=== PATIENT | male | born 1960 | race Caucasian/White ===

== ENCOUNTER 2018-07-25 05:26 | Observation (INO) | payer MEDICARE ==
[2018-07-22 10:24] LABS: BASOPHILS % 0.6 % (0.0-1.0); EOSINOPHILS # (AUTO) 0.4 (0.0-0.4); EOSINOPHILS % 5.9 % (0.0-6.0); HEMATOCRIT 49.8 % (38.2-49.6); HEMOGLOBIN 16.1 g/dL (14.0-18.0); LYMPHOCYTES # (AUTO) 1.4 (1.0-3.2); LYMPHOCYTES % 20.6 % (18.0-39.1); MEAN CORPUSCULAR HEMOGLOBIN 29.3 pg (28-32); MEAN CORPUSCULAR HGB CONC 32.3 g/dL (31-35); MEAN CORPUSCULAR VOLUME 90.7 fL (81-99); MONOCYTES # (AUTO) 0.6 (0.2-0.8); MONOCYTES % 8.4 % (4.4-11.3); NEUTROPHILS # (AUTO) 4.4 (2.1-6.9); NEUTROPHILS % 63.1 % (38.7-80.0); PLATELET COUNT 156 x10e3/uL (140-360); RED BLOOD COUNT 5.49 x10e6/uL (4.3-5.7); RED CELL DISTRIBUTION WIDTH 13.1 % (11.7-14.4)
[2018-07-22 10:43] LABS: ANION GAP 14.9 mmol/L (8-16); BLOOD UREA NITROGEN 18 mg/dL (7-26); BUN/CREATININE RATIO 15 (6-25); CALCIUM 9.5 mg/dL (8.4-10.2); CARBON DIOXIDE 25 mmol/L (22-29); CHLORIDE 104 mmol/L (98-107); CREATININE, SERUM 1.19 mg/dL (0.72-1.25); EST GLOMERULAR FILTRATION RATE > 60 ML/MIN (60-); GLUCOSE 121 mg/dL (74-118); POTASSIUM 4.9 mmol/L (3.5-5.1); SODIUM 139 mmol/L (136-145)
[~2018-07-25] VITALS: Ht 180.3 cm; Wt 111.8 kg
[~2018-07-25 05:26] MED LIST: CYMBALTA30 MG; FLECTOR1 EACH; INVOKANA; LISINOPRIL2.5 MG PO; LYRICA75 MG; METANX; METFORMIN HCL850 MG PO; TESTOSTERO200 MG/1 M; TRESIBA; [UNRECOGNIZED DRUG - OTHER]
[2018-07-25] MEDS ORDERED: CEFAZOLIN SOD 2 GM/D5W 50ML 50 ML IV ONE (06:12)
[2018-07-25] MEDS ORDERED: INVOKANA (06:48)
[2018-07-25] MEDS ORDERED: DICLOFENAC SODI75 MG (06:48)
[2018-07-25] MEDS ORDERED: OMEPRAZOLE40 MG (06:48)
[2018-07-25] MEDS ORDERED: ONDANSETRON HCL INJ 2 MG/ML VIAL IV PRN (08:15)
[2018-07-25] MEDS ORDERED: MORPHINE SULFATE INJ 4 MG/ML INJ IV PRN (08:15)
[2018-07-25] MEDS ORDERED: FENTANYL CITRATE/PF 100MCG/2 ML INJ ONE ×3 (08:48→18:09)
[2018-07-25] MEDS ORDERED: PREGABALIN 75 MG CAP PO SCH ×2 (09:00)
[2018-07-25] MEDS ORDERED: METFORMIN HCL 850 MG TAB PO SCH (09:00)
[2018-07-25] MEDS ORDERED: NON-FORMULARY MEDICATION ([Invokana] 300 MG) PO SCH (09:00)
[2018-07-25 09:28] VITALS: BP 131/70
--- NOTE | 2018-07-25 09:37 | Operative Report ---
DATE OF PROCEDURE: July 25, 2018 PREOPERATIVE DIAGNOSIS: Left thyroid mass with tracheal compression. POSTOPERATIVE DIAGNOSIS: Left thyroid mass with tracheal compression. PROCEDURE: Left thyroid lobectomy and isthmusectomy. DATA INTEGRATION ANALYST: None. ANESTHESIA: General. INDICATIONS AND FINDINGS: Patient is a 57-year-old male who presents with a mass in the left lobe of the thyroid. This increased in size. Exam revealed a large mass in the left lobe of the thyroid extending into the left neck with compression and deviation of the trachea to the right. At surgery, there was a large mass taking up almost the entire left lobe of the thyroid with also a small nodule in the isthmus. Frozen section of the mass revealed it to be benign adenomatous nodule. TECHNIQUE: After adequate general endotracheal anesthesia and patient in supine position, the neck was prepped and draped in sterile fashion with [place] solution. Transverse incision was made approximately 2 cm above the sternal notch, carried down through the subcutaneous tissue and platysma. Subplatysmal flaps were raised superiorly and inferiorly. Strap muscles were divided in the midline. The trachea was noted to be deviated to the right. The strap muscle was dissected away from the left lobe of the thyroid. It was greatly enlarged. It was found to extend laterally into the neck. The vein was mobilized by dividing the middle thyroid vein and was bluntly freed from the surrounding tissues so it could be mobilized to the midline. In order to facilitate the mobilization, strap muscles were divided between clamps. With the clamp mobilized in the midline, the vessels going into thyroid were dissected free and divided between Hemoclips. The recurrent laryngeal nerve was identified and preserved. The parathyroid was also identified and preserved. As the gland was mobilized, the vessel was divided between Hemoclips. The superior pole vessels also were divided between Hemoclips until the gland was completely free and the isthmus was free also from the trachea. The thyroid was then divided at the junction of the isthmus and the right lobe of the thyroid between clamps and the specimen removed, submitted for frozen section, revealed a benign adenomatous nodule. The thyroid was suture ligated with 2-0 Vicryl. Hemostasis was seen to be adequate. The wound was then irrigated with saline, inspected for hemostasis which was seen to be adequate. A 10-mm flat Saji-Cervantes drain was placed into the wound, beneath the strap muscles through a separate stab wound incision. The strap muscles were reapproximated using interrupted sutures of 3-0 Vicryl then reapproximated in the midline using 2-0 Vicryl. The platysma was closed with running suture of 3-0 Vicryl. The skin was closed with running subcuticular suture of 4-0 Vicryl. Steri-strips and sterile dressing were applied. The patient tolerated the procedure well. Estimated blood loss was 25 mL. There were no complications. All counts were correct. Patient was taken to the recovery room in satisfactory condition. Job#: [id number] GE cc:ALIX CARLSON MD
[2018-07-25] MEDS: LISINOPRIL 2.5 MG TAB PO SCH (10:10)
[2018-07-25] MEDS: PREGABALIN 50 MG CAP PO SCH (10:10)
[2018-07-25] MEDS: METFORMIN HCL 500 MG TAB CR PO SCH (10:11)
[2018-07-25] MEDS: HYDROCODONE/APAP 5MG-325MG TAB PO PRN ×3 (10:11→22:55)
[2018-07-25] MEDS: CANAGLIFLOZIN 300 MG TABLET PO SCH (10:11)
[2018-07-25] MEDS: DULOXETINE HCL 30 MG DELAYED RELEASE PO SCH (10:11)
[2018-07-25] MEDS: PANTOPRAZOLE SOD 40 MG TABEC PO SCH (10:11)
[2018-07-25] MEDS: SODIUM CHLORIDE 0.9% 1000ML 1,000 ML IV SCH ×2 (10:11→18:12)
[2018-07-25 10:17] VITALS: BP 131/70
[2018-07-25 11:46] VITALS: BP 128/78
[2018-07-25 15:55] VITALS: BP 113/58
[2018-07-25] MEDS ORDERED: MIDAZOLAM HCL 2 MG/2 ML VIAL ONE ×2 (18:09)
[2018-07-25] MEDS ORDERED: NEOSTIGMINE 5 MG/5ML SYR ONE (18:26)
[2018-07-25] MEDS ORDERED: PROPOFOL IV EMULSION 10 MG/ML 20 ML VIAL ONE (18:26)
[2018-07-25] MEDS ORDERED: SEVOFLURANE INHAL SOLN 250 ML PEN BTL ONE (18:26)
[2018-07-25] MEDS ORDERED: ONDANSETRON HCL INJ 2 MG/ML VIAL ONE (18:26)
[2018-07-25] MEDS ORDERED: DEXAMETHASONE SOD PHOS INJ 4 MG/ML VIAL ONE (18:26)
[2018-07-25] MEDS ORDERED: ACETAMINOPHEN 1000 MG/100 ML IV ONE (18:26)
[2018-07-25] MEDS ORDERED: KETOROLAC TROMETHAMINE 30 MG/ML VIAL ONE (18:26)
[2018-07-25] MEDS ORDERED: ROCURONIUM BROMIDE 10 MG/ML 5ML VIAL ONE (18:26)
[2018-07-25] MEDS ORDERED: GLYCOPYRROLATE INJ 1MG/ 5 ML SYR ONE (18:26)
[2018-07-25] MEDS ORDERED: LIDOCAINE HCL 2% LOCAL INJ 5 ML SDV VIAL INJ ONE (18:26)
[2018-07-25 20:00] VITALS: BP 121/66
[2018-07-26 00:34] VITALS: BP 128/60
[2018-07-26] MEDS: SODIUM CHLORIDE 0.9% 1000ML 1,000 ML IV SCH (04:12)
[2018-07-26] MEDS: HYDROCODONE/APAP 5MG-325MG TAB PO PRN ×2 (05:09→08:35)
[2018-07-26 05:51] VITALS: BP 131/63
[2018-07-26 06:39] LABS: ANION GAP 14.3 mmol/L (8-16); CARBON DIOXIDE 21 mmol/L (22-29); CHLORIDE 107 mmol/L (98-107); POTASSIUM 4.3 mmol/L (3.5-5.1); SODIUM 138 mmol/L (136-145)
[2018-07-26 06:59] LABS: BLOOD UREA NITROGEN 23 mg/dL (7-26); BUN/CREATININE RATIO 19 (6-25); CALCIUM 8.6 mg/dL (8.4-10.2); CREATININE, SERUM 1.21 mg/dL (0.72-1.25); EST GLOMERULAR FILTRATION RATE > 60 ML/MIN (60-); GLUCOSE 139 mg/dL (74-118)
[2018-07-26] MEDS: PANTOPRAZOLE SOD 40 MG TABEC PO SCH (07:30)
[2018-07-26] MEDS: METFORMIN HCL 500 MG TAB CR PO SCH (08:00)
[2018-07-26 08:19] VITALS: BP 120/60
[2018-07-26] MEDS: CANAGLIFLOZIN 300 MG TABLET PO SCH (08:47)
[2018-07-26] MEDS: LISINOPRIL 2.5 MG TAB PO SCH (08:47)
[2018-07-26] MEDS: PREGABALIN 50 MG CAP PO SCH (08:47)
[2018-07-26] MEDS: DULOXETINE HCL 30 MG DELAYED RELEASE PO SCH (08:47)
[2018-07-26 09:00] VITALS: BP 120/60
== END 2018-07-26 09:40 | disposition home or self-care (01) ==
LOC: OR 05:26 → PACU V 08:56 → MED/SURG 09:13
PROVIDERS: ADMIT Surgery; ATTEND Surgery
DX: E04.1 Nontoxic single thyroid nodule (principal); J39.8 Other specified diseases of upper respiratory tract; E11.42 Type 2 diabetes mellitus with diabetic polyneuropathy; Z96.651 Presence of right artificial knee joint; Z86.14 Personal history of Methicillin resistant Staphylococcus aureus infection; Z01.810 Encounter for preprocedural cardiovascular examination; Z01.812 Encounter for preprocedural laboratory examination
CPT/HCPCS: 36415 ×3; 60210; 80048 ×2; 82948 ×2; 85025; 88307; 88331; 93005; G0378 ×2; J1100; J1885; J2001; J2250; J2405; J3490; J7030; S0164 ×2; 88305

== ENCOUNTER 2019-05-30 11:14 | Outpatient (RCR) | payer MEDICARE ==
[~2019-05-30 11:14] MED LIST changes: +DICLOFENAC SODI75 MG; +LIDOCAINE VISC 2% SOLN 15 ML UDC ONE; +OMEPRAZOLE40 MG
[2019-05-30] MEDS ORDERED: LIDOCAINE VISC 2% SOLN 15 ML UDC ONE (17:44)
== END 2019-06-04 ==
LOC: WCC 11:14
PROVIDERS: ATTEND Internal Medicine Infectious Disease
DX: E11.621 Type 2 diabetes mellitus with foot ulcer (principal); L97.523 Non-pressure chronic ulcer of other part of left foot with necrosis of muscle; L97.513 Non-pressure chronic ulcer of other part of right foot with necrosis of muscle; I73.9 Peripheral vascular disease, unspecified
CPT/HCPCS: 87071; 87075; 87186; 87205

== ENCOUNTER → 2019-06-03 | Outpatient (CLI) | payer MEDICARE ==
[~2019-06-03] MED LIST changes: -LIDOCAINE VISC 2% SOLN 15 ML UDC ONE
--- NOTE | 2019-06-03 10:26 | Diagnostic Imaging Report ---
EXAMINATION: FOOT LEFT COMPLETE INDICATION: Great toe nonhealing wound COMPARISON: None FINDINGS: 3 views of the left foot demonstrate no acute fracture or dislocation. Alignment is normal. There is apparent soft tissue defect along the plantar aspect of the great toe with a small sliver of subcutaneous emphysema. There is underlying bony remodeling at the plantar aspect of the great toe distal phalanx which may represent osseous changes of chronic osteomyelitis. No substantial degenerative change. No ankle joint effusion. Small plantar calcaneal spur. IMPRESSION: No acute osseous injury. Apparent soft tissue defect along the plantar aspect of the great toe with underlying bony remodeling for which the differential includes changes related to chronic osteomyelitis. Signed by: Bailey Byers MD on 06/03/2019 10:23 AM
== END ==
LOC: RAD 09:21
PROVIDERS: ATTEND Internal Medicine Infectious Disease
DX: E11.621 Type 2 diabetes mellitus with foot ulcer (principal); L97.523 Non-pressure chronic ulcer of other part of left foot with necrosis of muscle

== ENCOUNTER → 2019-06-06 | Outpatient (CLI) | payer MEDICARE ==
[~2019-06-06] MED LIST changes: +AMMONIUM LACTATE 12% LOTION 225GM BTL ONE; +LIDOCAINE/PRILOCAINE 2.5-2.5% KIT ONE; +MUPIROCIN 2% OINT 22 GM TUBE ONE
== END ==
LOC: WCC 10:52
PROVIDERS: ATTEND Internal Medicine Infectious Disease
DX: E11.621 Type 2 diabetes mellitus with foot ulcer (principal); M86.672 Other chronic osteomyelitis, left ankle and foot; L97.523 Non-pressure chronic ulcer of other part of left foot with necrosis of muscle; L97.513 Non-pressure chronic ulcer of other part of right foot with necrosis of muscle; I73.9 Peripheral vascular disease, unspecified; G90.09 Other idiopathic peripheral autonomic neuropathy; I70.203 Unspecified atherosclerosis of native arteries of extremities, bilateral legs
CPT/HCPCS: 36415; 82948

== ENCOUNTER 2019-07-04 11:46 | Outpatient (RCR) | payer MEDICARE ==
[~2019-07-04 11:46] MED LIST changes: -AMMONIUM LACTATE 12% LOTION 225GM BTL ONE; -LIDOCAINE/PRILOCAINE 2.5-2.5% KIT ONE; -MUPIROCIN 2% OINT 22 GM TUBE ONE
== END 2019-07-05 ==
LOC: WCC 11:46
PROVIDERS: ATTEND Internal Medicine Infectious Disease
DX: E11.621 Type 2 diabetes mellitus with foot ulcer (principal); M86.672 Other chronic osteomyelitis, left ankle and foot; L97.523 Non-pressure chronic ulcer of other part of left foot with necrosis of muscle; L97.513 Non-pressure chronic ulcer of other part of right foot with necrosis of muscle; I73.9 Peripheral vascular disease, unspecified; G90.09 Other idiopathic peripheral autonomic neuropathy; I70.203 Unspecified atherosclerosis of native arteries of extremities, bilateral legs

== ENCOUNTER 2019-08-01 11:25 | Outpatient (RCR) | payer MEDICARE ==
[~2019-08-01 11:25] MED LIST changes: +LIDOCAINE/PRILOCAINE 2.5-2.5% KIT ONE
== END 2019-08-04 ==
LOC: WCC 11:25
PROVIDERS: ATTEND Internal Medicine Infectious Disease
DX: E11.621 Type 2 diabetes mellitus with foot ulcer (principal); M86.672 Other chronic osteomyelitis, left ankle and foot; L97.523 Non-pressure chronic ulcer of other part of left foot with necrosis of muscle; L97.513 Non-pressure chronic ulcer of other part of right foot with necrosis of muscle; I73.9 Peripheral vascular disease, unspecified; I70.203 Unspecified atherosclerosis of native arteries of extremities, bilateral legs; G90.09 Other idiopathic peripheral autonomic neuropathy

== ENCOUNTER 2019-08-25 13:48 | Outpatient (RCR) | payer MEDICARE ==
[~2019-08-25 13:48] MED LIST changes: +AMMONIUM LACTATE 12% LOTION 225GM BTL ONE; -LIDOCAINE/PRILOCAINE 2.5-2.5% KIT ONE; +MINERAL OIL/PETROLAT/GLYCERI 6OZ BTL ONE
== END 2019-09-04 ==
LOC: WCC 13:48
PROVIDERS: ATTEND Internal Medicine Infectious Disease
DX: E11.621 Type 2 diabetes mellitus with foot ulcer (principal); M86.672 Other chronic osteomyelitis, left ankle and foot; L97.523 Non-pressure chronic ulcer of other part of left foot with necrosis of muscle; L97.519 Non-pressure chronic ulcer of other part of right foot with unspecified severity; I73.9 Peripheral vascular disease, unspecified; G90.09 Other idiopathic peripheral autonomic neuropathy; I70.203 Unspecified atherosclerosis of native arteries of extremities, bilateral legs

== ENCOUNTER → 2019-09-09 | Outpatient (CLI) | payer MEDICARE ==
[~2019-09-09] MED LIST changes: -AMMONIUM LACTATE 12% LOTION 225GM BTL ONE; -MINERAL OIL/PETROLAT/GLYCERI 6OZ BTL ONE
== END ==
LOC: LAB 15:29
PROVIDERS: ATTEND Podiatrist Foot & Ankle Surgery
DX: E11.621 Type 2 diabetes mellitus with foot ulcer (principal)

== ENCOUNTER 2019-09-29 14:26 | Outpatient (RCR) | payer MEDICARE ==
[2019-09-09 16:23] LABS: BASOPHILS % 0.4 % (0.0-1.0); EOSINOPHILS # (AUTO) 0.2 (0.0-0.4); EOSINOPHILS % 2.3 % (0.0-6.0); HEMATOCRIT 46.8 % (38.2-49.6); HEMOGLOBIN 14.6 g/dL (14.0-18.0); LYMPHOCYTES # (AUTO) 1.9 (1.0-3.2); MEAN CORPUSCULAR HEMOGLOBIN 26.2 pg (28-32); MEAN CORPUSCULAR HGB CONC 31.2 g/dL (31-35); MEAN CORPUSCULAR VOLUME 83.9 fL (81-99); MONOCYTES # (AUTO) 0.9 (0.2-0.8); MONOCYTES % 9.1 % (4.4-11.3); NEUTROPHILS # (AUTO) 6.5 (2.1-6.9); NEUTROPHILS % 67.7 % (38.7-80.0); PLATELET COUNT 174 x10e3/uL (140-360); RED BLOOD COUNT 5.58 x10e6/uL (4.3-5.7); RED CELL DISTRIBUTION WIDTH 14.9 % (11.7-14.4)
[~2019-09-29 14:26] MED LIST changes: +MINERAL OIL/PETROLAT/GLYCERI 6OZ BTL ONE
== END 2019-10-04 ==
LOC: WCC 14:26
PROVIDERS: ATTEND Podiatrist Foot & Ankle Surgery
DX: E11.621 Type 2 diabetes mellitus with foot ulcer (principal); L97.523 Non-pressure chronic ulcer of other part of left foot with necrosis of muscle; L97.519 Non-pressure chronic ulcer of other part of right foot with unspecified severity; G90.09 Other idiopathic peripheral autonomic neuropathy; I70.203 Unspecified atherosclerosis of native arteries of extremities, bilateral legs
CPT/HCPCS: 15275 ×3; 29445 ×3; 36415; 83036; 84134; 85025; 97597; Q4186 ×3

== ENCOUNTER 2020-04-02 12:58 | Outpatient (RCR) | payer MEDICARE ==
[~2020-04-02 12:58] MED LIST changes: +LIDOCAINE VISC 2% SOLN 15 ML UDC ONE; +LIDOCAINE/PRILOCAINE 2.5-2.5% KIT ONE; -MINERAL OIL/PETROLAT/GLYCERI 6OZ BTL ONE
[2020-04-02] MEDS ORDERED: MINERAL OIL/PETROLAT/GLYCERI 6OZ BTL ONE (14:46)
== END 2020-04-04 ==
LOC: WCC 12:58
PROVIDERS: ATTEND Podiatrist Foot & Ankle Surgery
DX: E11.621 Type 2 diabetes mellitus with foot ulcer (principal); L97.521 Non-pressure chronic ulcer of other part of left foot limited to breakdown of skin; L97.511 Non-pressure chronic ulcer of other part of right foot limited to breakdown of skin; G90.09 Other idiopathic peripheral autonomic neuropathy; I70.203 Unspecified atherosclerosis of native arteries of extremities, bilateral legs

== ENCOUNTER 2020-04-26 12:49 | Outpatient (RCR) | payer MEDICARE ==
[~2020-04-26 12:49] MED LIST changes: -LIDOCAINE VISC 2% SOLN 15 ML UDC ONE; -LIDOCAINE/PRILOCAINE 2.5-2.5% KIT ONE; +MINERAL OIL/PETROLAT/GLYCERI 6OZ BTL ONE
== END 2020-05-04 ==
LOC: WCC 12:49
PROVIDERS: ATTEND Podiatrist Foot & Ankle Surgery
DX: E11.621 Type 2 diabetes mellitus with foot ulcer (principal); L97.521 Non-pressure chronic ulcer of other part of left foot limited to breakdown of skin; L97.511 Non-pressure chronic ulcer of other part of right foot limited to breakdown of skin; I70.203 Unspecified atherosclerosis of native arteries of extremities, bilateral legs; L20.9 Atopic dermatitis, unspecified; R23.8 Other skin changes; G90.09 Other idiopathic peripheral autonomic neuropathy

== ENCOUNTER 2020-05-13 14:52 | Emergency (ER) | payer MEDICARE ==
[~2020-05-13] VITALS: Ht 180.3 cm; Wt 111.6 kg
[~2020-05-13 14:52] MED LIST changes: -MINERAL OIL/PETROLAT/GLYCERI 6OZ BTL ONE
[2020-05-13] MEDS ORDERED: XARELTO10 MG PO (15:23)
[2020-05-13] MEDS ORDERED: XARELTO20 MG PO (15:23)
--- NOTE | 2020-05-13 15:46 | Emergency Department Note ---
History of Present Illnes History of Present Illness Chief Complaint: General Medicine Complaints History of Present Illness This is a 59 year old male arrives to the ED the right upper extremity swelling, recently had a PICC line in place secondary to infected prosthetic knee and toe infection from diabetes complication. Patient was receiving outpatient upper extremity duplex study was found that he had a DVT. Patient denies any shortness of breath, cough or difficulty breathing . Historian: Patient Arrival Mode: Car Onset (how long ago): day(s) Severity: mild Onset quality: gradual Chronicity: new Context: Reports other (recent PICC line ) Relieving factors: none Treatments prior to arrival: none Past Medical/Family History Physician Review I have reviewed the patient's past medical and family history. Any updates have been documented here. Past Medical History Recent Fever: No Clinical Suspicion of Infectio: No New/Unexplained Change in Ment: No Past Medical History: Diabetes Other Surgery: Left Shoulder surgery Social History Physically hurt or threatened: No Review of Systems Review of Systems Constitutional: Reports no symptoms EENTM: Reports no symptoms Cardiovascular: Reports no symptoms Respiratory: Reports no symptoms Gastrointestinal: Reports no symptoms Genitourinary: Reports no symptoms Musculoskeletal: Reports as per HPI, Reports muscle pain, Reports muscle stiffn ess Integumentary: Reports no symptoms Neurological: Reports no symptoms Psychological: Reports no symptoms Endocrine: Reports no symptoms Hematological/Lymphatic: Reports no symptoms Physical Exam Related Data Allergies: Coded Allergies: No Known Allergies (Unverified , 07/23/18) Triage Vital Signs Vital Signs Date Time Temp Pulse Resp B/P (MAP) Pulse Ox O2 Delivery O2 Flow Rate FiO2 05/13/20 15:18 98.4 72 18 130/72 100 Room Air Vital signs reviewed: Yes Physical Exam CONSTITUTIONAL Constitutional: Present well-developed, Present well-nourished HENT HENT: Present normocephalic, Present atraumatic, Present oropharynx clear/moist, Present nose normal HENT L/R: Present left ext ear normal, Present right ext ear normal EYES Eyes: Reports PERRL, Reports conjunctivae normal NECK Neck: Present ROM normal PULMONARY Pulmonary: Present effort normal, Present breath sounds normal CARDIOVASCULAR Cardiovascular: Present regular rhythm, Present heart sounds normal, Present capillary refill normal, Present normal rate GASTROINTESTINAL Abdominal: Present soft, Present nontender, Present bowel sounds normal GENITOURINARY Genitourinary: Present exam deferred SKIN Skin: Present warm, Present dry MUSCULOSKELETAL Musculoskeletal: Present ROM normal, Present tenderness, Present swelling NEUROLOGICAL Neurological: Present alert, Present oriented x 3, Present no gross motor or sensory deficits PSYCHOLOGICAL Psychological: Present mood/affect normal, Present judgement normal Assessment & Plan Medical Decision Making MDM 59-year-old well-appearing male arrives to the ED with complaints of right upper extremity swelling, found to have a DVT. Patient is not hypoxic tachypnea, or tachycardic. Patient had a provoked DVT secondary to PICC line, no indications for CT chest at this time. The patient length about the signs and symptoms of a pulmonary embolus. Patient given Xarelto 20 mg by mouth twice a day for 21 days followed by 20 mg daily subscription. Spoke to patient at the importance of hematology follow-up, patient stable with normal vital signs at time of discharge. Assessment & Plan Final Impression: (1) DVT of upper extremity (deep vein thrombosis) Depart Disposition: HOME, SELF-CARE Last Vital Signs Date Time Temp Pulse Resp B/P (MAP) Pulse Ox O2 Delivery O2 Flow Rate FiO2 05/13/20 15:18 98.4 72 18 130/72 100 Room Air Home Meds Active Scripts Rivaroxaban (XARELTO) 20 Mg Tablet, 20 MG PO DAILY, #30 Prov:CLEMENCIA THRASHER, DO 05/13/20 Rivaroxaban (XARELTO) 10 Mg Tablet, 15 MG PO BID for 21 Days, #42 Prov:CLEMENCIA THRASHER, DO 05/13/20 Reported Medications Omeprazole (OMEPRAZOLE) 40 Mg Capsule., 20 MG DAILY 07/25/18 [Invokana] No Conflict Check, 300 DAILY 07/25/18 Diclofenac Sodium (DICLOFENAC SODIUM) 75 Mg Tablet., BID THERAPEUTICALLY SUBSTITUTED WITH IBUPROFEN 600MG 07/25/18 Testosterone Cypionate (TESTOSTERONE CYPIONATE) 200 Mg/1 Ml Vial 07/23/18 [Tresiba] No Conflict Check, 10 07/23/18 Pregabalin (LYRICA) 75 Mg Cap, 200 MG DAILY, #30 CAP 07/23/18 Pregabalin (LYRICA) 75 Mg Cap, 200 MG DAILY, #30 CAP 07/23/18 Lisinopril (LISINOPRIL) 2.5 Mg Tablet, 5 MG PO DAILY, #30 TAB 07/23/18 Duloxetine Hcl (CYMBALTA) 30 Mg Capsule.dr, 90 MG DAILY, #30 CAP 07/23/18 [Metanx] 75 No Conflict Check, DAILY 07/23/18 Metformin Hcl (METFORMIN HCL) 850 Mg Tablet, 1000 MG PO DAILY, #30 TAB 07/23/18 CLEMENCIA THRASHER, May 13, 2020 15:46
== END 2020-05-13 15:27 | disposition home or self-care (01) ==
LOC: ER 14:55
DX: I82.621 Acute embolism and thrombosis of deep veins of right upper extremity (principal); E11.9 Type 2 diabetes mellitus without complications
CPT/HCPCS: 99282

== ENCOUNTER 2020-05-24 13:22 | Outpatient (RCR) | payer MEDICARE ==
[~2020-05-24 13:22] MED LIST changes: +XARELTO10 MG PO; +XARELTO20 MG PO
== END 2020-06-04 ==
LOC: WCC 13:22
PROVIDERS: ATTEND Podiatrist Foot & Ankle Surgery
DX: E11.621 Type 2 diabetes mellitus with foot ulcer (principal); L97.521 Non-pressure chronic ulcer of other part of left foot limited to breakdown of skin; G90.09 Other idiopathic peripheral autonomic neuropathy; I70.203 Unspecified atherosclerosis of native arteries of extremities, bilateral legs; L20.9 Atopic dermatitis, unspecified; R23.8 Other skin changes; Z45.2 Encounter for adjustment and management of vascular access device

== ENCOUNTER 2020-06-29 15:19 | Outpatient (RCR) | payer MEDICARE | END 2020-07-05 | LOC: WCC 15:19 | PROVIDERS: ATTEND Podiatrist Foot & Ankle Surgery | DX: E11.621 Type 2 diabetes mellitus with foot ulcer (principal); L97.521 Non-pressure chronic ulcer of other part of left foot limited to breakdown of skin; I70.203 Unspecified atherosclerosis of native arteries of extremities, bilateral legs; G90.09 Other idiopathic peripheral autonomic neuropathy; L20.9 Atopic dermatitis, unspecified; R23.8 Other skin changes; Z45.2 Encounter for adjustment and management of vascular access device ==

== ENCOUNTER → 2020-07-20 | Outpatient (CLI) | payer MEDICARE | LOC: WCC 03:00 → EDSTATUS 11:36 | PROVIDERS: ATTEND Podiatrist Foot & Ankle Surgery | DX: E11.621 Type 2 diabetes mellitus with foot ulcer (principal); L97.521 Non-pressure chronic ulcer of other part of left foot limited to breakdown of skin; L20.9 Atopic dermatitis, unspecified; I70.203 Unspecified atherosclerosis of native arteries of extremities, bilateral legs; R23.8 Other skin changes; G90.09 Other idiopathic peripheral autonomic neuropathy; Z45.2 Encounter for adjustment and management of vascular access device ==

== ENCOUNTER 2020-12-28 14:20 | Outpatient (RCR) | payer MEDICARE | END 2021-01-02 | LOC: WCC 14:20 | PROVIDERS: ATTEND Podiatrist Foot & Ankle Surgery | DX: E11.621 Type 2 diabetes mellitus with foot ulcer (principal); L97.529 Non-pressure chronic ulcer of other part of left foot with unspecified severity; I70.203 Unspecified atherosclerosis of native arteries of extremities, bilateral legs; L20.9 Atopic dermatitis, unspecified; R23.8 Other skin changes; G90.09 Other idiopathic peripheral autonomic neuropathy; Z45.2 Encounter for adjustment and management of vascular access device ==

== ENCOUNTER 2021-01-25 14:51 | Outpatient (RCR) | payer MEDICARE | END 2021-02-02 | LOC: WCC 14:51 | PROVIDERS: ATTEND Podiatrist Foot & Ankle Surgery | DX: E11.621 Type 2 diabetes mellitus with foot ulcer (principal); L97.529 Non-pressure chronic ulcer of other part of left foot with unspecified severity; I70.203 Unspecified atherosclerosis of native arteries of extremities, bilateral legs; L20.9 Atopic dermatitis, unspecified; R23.8 Other skin changes; G90.09 Other idiopathic peripheral autonomic neuropathy; Z45.2 Encounter for adjustment and management of vascular access device ==

== ENCOUNTER 2021-06-28 13:36 | Outpatient (RCR) | payer MEDICARE ==
[2021-06-28 17:12] LABS: BASOPHILS % 0.5 % (0.0-1.0); EOSINOPHILS # (AUTO) 0.2 (0.0-0.4); EOSINOPHILS % 2.5 % (0.0-6.0); HEMATOCRIT 44.4 % (38.2-49.6); HEMOGLOBIN 12.9 g/dL (14.0-18.0); LYMPHOCYTES # (AUTO) 1.5 (1.0-3.2); LYMPHOCYTES % 19.5 % (18.0-39.1); MEAN CORPUSCULAR HEMOGLOBIN 22.4 pg (28-32); MEAN CORPUSCULAR HGB CONC 29.1 g/dL (31-35); MEAN CORPUSCULAR VOLUME 77.1 fL (81-99); MONOCYTES # (AUTO) 0.8 (0.2-0.8); MONOCYTES % 10.9 % (4.4-11.3); NEUTROPHILS % 65.9 % (38.7-80.0); PLATELET COUNT 239 x10e3/uL (140-360); RED BLOOD COUNT 5.76 x10e6/uL (4.3-5.7); RED CELL DISTRIBUTION WIDTH 18.9 % (11.7-14.4)
[2021-06-28 17:31] LABS: ALBUMIN 3.9 g/dL (3.5-5.0); ALBUMIN/GLOBULIN RATIO 1.1 (0.8-2.0); ANION GAP 15.3 mmol/L (8-16); CALCIUM 8.8 mg/dL (8.4-10.2); CREATININE, SERUM 1.79 mg/dL (0.72-1.25); POTASSIUM 5.3 mmol/L (3.5-5.1)
== END 2021-07-05 ==
LOC: WCC 13:36
PROVIDERS: ATTEND Podiatrist Foot & Ankle Surgery
DX: E11.621 Type 2 diabetes mellitus with foot ulcer (principal); L97.521 Non-pressure chronic ulcer of other part of left foot limited to breakdown of skin; I70.203 Unspecified atherosclerosis of native arteries of extremities, bilateral legs; G90.09 Other idiopathic peripheral autonomic neuropathy; L20.9 Atopic dermatitis, unspecified; R23.8 Other skin changes; Z45.2 Encounter for adjustment and management of vascular access device
CPT/HCPCS: 36415; 80053; 83036; 84134; 85025; 87071; 87075; 87186; 87205

== ENCOUNTER 2021-08-02 12:42 | Outpatient (RCR) | payer MEDICARE ==
[~2021-08-02 12:42] MED LIST changes: +LYRICA75 MG PO; -TESTOSTERO200 MG/1 M; +TESTOSTERO200 MG/1 M INJ
[2021-08-05] MEDS ORDERED: THYROID NP PO (08:30)
[2021-08-05] MEDS ORDERED: FARXIGA10 MG PO (08:30)
== END 2021-08-04 ==
LOC: WCC 12:42
PROVIDERS: ATTEND Podiatrist Foot & Ankle Surgery
DX: E11.621 Type 2 diabetes mellitus with foot ulcer (principal); L97.521 Non-pressure chronic ulcer of other part of left foot limited to breakdown of skin; I70.203 Unspecified atherosclerosis of native arteries of extremities, bilateral legs; L20.9 Atopic dermatitis, unspecified; R23.8 Other skin changes; G90.09 Other idiopathic peripheral autonomic neuropathy; A49.8 Other bacterial infections of unspecified site; Z45.2 Encounter for adjustment and management of vascular access device

== ENCOUNTER 2021-08-08 11:50 | Inpatient (IN) | payer MEDICARE ==
[2021-08-05 09:48] LABS: BASOPHILS % 0.6 % (0.0-1.0); EOSINOPHILS # (AUTO) 0.2 (0.0-0.4); EOSINOPHILS % 3.1 % (0.0-6.0); HEMATOCRIT 45.5 % (38.2-49.6); HEMOGLOBIN 12.9 g/dL (14.0-18.0); LYMPHOCYTES # (AUTO) 1.4 (1.0-3.2); LYMPHOCYTES % 19.8 % (18.0-39.1); MEAN CORPUSCULAR HEMOGLOBIN 22.2 pg (28-32); MEAN CORPUSCULAR HGB CONC 28.4 g/dL (31-35); MEAN CORPUSCULAR VOLUME 78.2 fL (81-99); MONOCYTES # (AUTO) 0.7 (0.2-0.8); MONOCYTES % 9.9 % (4.4-11.3); NEUTROPHILS # (AUTO) 4.7 (2.1-6.9); NEUTROPHILS % 66.2 % (38.7-80.0); PLATELET COUNT 224 x10e3/uL (140-360); RED BLOOD COUNT 5.82 x10e6/uL (4.3-5.7); RED CELL DISTRIBUTION WIDTH 17.5 % (11.7-14.4)
[2021-08-05 10:33] LABS: ANION GAP 13.9 mmol/L (8-16); CALCIUM 8.4 mg/dL (8.4-10.2); CREATININE, SERUM 1.66 mg/dL (0.72-1.25); POTASSIUM 4.9 mmol/L (3.5-5.1)
[~2021-08-08] VITALS: Ht 177.8 cm; Wt 117.0 kg
[~2021-08-08 11:50] MED LIST changes: +FARXIGA10 MG PO; +THYROID NP PO
[2021-08-08] MEDS ORDERED: PIPERACILLIN/TAZOBACTAM 3.375 GM VIAL ONE (12:24)
[2021-08-08] MEDS ORDERED: SODIUM CHLORIDE 0.9% 50ML 50 ML ONE (12:24)
[2021-08-08] MEDS ORDERED: CLINDAMYCIN 300MG 50 ML IV ONE (12:24)
[2021-08-08] MEDS ORDERED: GENTAMICIN 80MG/NS 100 ML 200 ML IV ONE (12:24)
[2021-08-08] MEDS ORDERED: MUPIROCIN 2% OINT 22 GM TUBE ONE (14:17)
[2021-08-08] MEDS ORDERED: Vancomycin IV 500 MG ONE ×2 (14:18→16:16)
[2021-08-08] MEDS ORDERED: SODIUM CHLORIDE 0.9% 500ML 500 ML ONE (14:19)
[2021-08-08] MEDS ORDERED: GENTAMICIN SULFATE 40 MG/ML 2 ML VIAL ONE ×2 (14:20→16:16)
[2021-08-08] MEDS ORDERED: ACETAMINOPHEN 1000 MG/100 ML 100 ML IV ONE (14:31)
[2021-08-08] MEDS ORDERED: ONDANSETRON HCL INJ 2MG/ML 2ML 2 MG/ML VIAL IV PRN (16:45)
[2021-08-08] MEDS ORDERED: DIPHENHYDRAMINE HCL 25 MG CAP PO PRN (16:45)
[2021-08-08] MEDS ORDERED: NALOXONE HCL INJ 0.4 MG/ML AMP IV PRN (16:45)
[2021-08-08] MEDS: MORPHINE SULFATE 1 MG/ML 30ML PCA IV PRN (16:50)
[2021-08-08 17:03] LABS: BASOPHILS # (AUTO) 0.1 (0.0-0.1); BASOPHILS % 0.5 % (0.0-1.0); EOSINOPHILS # (AUTO) 0.1 (0.0-0.4); EOSINOPHILS % 0.7 % (0.0-6.0); HEMATOCRIT 45.2 % (38.2-49.6); HEMOGLOBIN 12.7 g/dL (14.0-18.0); LYMPHOCYTES % 8.5 % (18.0-39.1); MEAN CORPUSCULAR HEMOGLOBIN 22.5 pg (28-32); MEAN CORPUSCULAR HGB CONC 28.1 g/dL (31-35); MEAN CORPUSCULAR VOLUME 80.1 fL (81-99); MONOCYTES # (AUTO) 0.4 (0.2-0.8); NEUTROPHILS # (AUTO) 10.5 (2.1-6.9); NEUTROPHILS % 86.6 % (38.7-80.0); PLATELET COUNT 223 x10e3/uL (140-360); RED BLOOD COUNT 5.64 x10e6/uL (4.3-5.7); RED CELL DISTRIBUTION WIDTH 17.1 % (11.7-14.4)
[2021-08-08 17:20] LABS: CALCIUM 8.1 mg/dL (8.4-10.2); CREATININE, SERUM 1.56 mg/dL (0.72-1.25)
[2021-08-08 17:46] VITALS: BP 129/60
[2021-08-08] MEDS: SODIUM CHLORIDE 0.9% 1000ML 1,000 ML IV SCH (17:55)
[2021-08-08] MEDS ORDERED: ACETAMINOPHEN 1000 MG/100 ML IV PRN (18:00)
[2021-08-08] MEDS ORDERED: SODIUM CHLORIDE 0.9% 1000ML 1,000 ML ONE (18:02)
[2021-08-08 19:00] VITALS: BP 138/69
[2021-08-08] MEDS: Cefazolin 1 GM in SODIUM CHLORIDE 0.9% 50ML 50 ML IV SCH (20:53)
[2021-08-08 21:13] VITALS: BP 138/69
[2021-08-09] VITALS (8 sets, daily range): BP systolic 108–123; BP diastolic 55–70
[2021-08-09] MEDS: SODIUM CHLORIDE 0.9% 1000ML 1,000 ML IV SCH ×2 (03:45→12:57)
[2021-08-09] MEDS: Cefazolin 1 GM in SODIUM CHLORIDE 0.9% 50ML 50 ML IV SCH ×3 (05:30→22:09)
[2021-08-09 06:28] LABS: BASOPHILS % 0.1 % (0.0-1.0); HEMATOCRIT 39.6 % (38.2-49.6); HEMOGLOBIN 11.6 g/dL (14.0-18.0); LYMPHOCYTES # (AUTO) 0.8 (1.0-3.2); LYMPHOCYTES % 5.1 % (18.0-39.1); MEAN CORPUSCULAR HEMOGLOBIN 22.7 pg (28-32); MEAN CORPUSCULAR HGB CONC 29.3 g/dL (31-35); MEAN CORPUSCULAR VOLUME 77.3 fL (81-99); MONOCYTES # (AUTO) 1.1 (0.2-0.8); MONOCYTES % 7.2 % (4.4-11.3); NEUTROPHILS # (AUTO) 12.7 (2.1-6.9); PLATELET COUNT 213 x10e3/uL (140-360); RED BLOOD COUNT 5.12 x10e6/uL (4.3-5.7); RED CELL DISTRIBUTION WIDTH 16.6 % (11.7-14.4)
[2021-08-09 06:45] LABS: ANION GAP 12.3 mmol/L (8-16); CALCIUM 7.3 mg/dL (8.4-10.2); CREATININE, SERUM 1.41 mg/dL (0.72-1.25); POTASSIUM 5.3 mmol/L (3.5-5.1)
[2021-08-09] MEDS: PREGABALIN 75 MG CAP PO SCH ×2 (13:23→22:07)
[2021-08-10] VITALS (8 sets, daily range): BP systolic 112–146; BP diastolic 59–74
[2021-08-10] MEDS: SODIUM CHLORIDE 0.9% 1000ML 1,000 ML IV SCH ×3 (01:13→17:45)
[2021-08-10] MEDS: THYROID 60 MG TAB PO SCH (05:32)
[2021-08-10 05:52] LABS: BASOPHILS % 0.2 % (0.0-1.0); EOSINOPHILS # (AUTO) 0.1 (0.0-0.4); EOSINOPHILS % 1.3 % (0.0-6.0); HEMATOCRIT 36.5 % (38.2-49.6); HEMOGLOBIN 10.7 g/dL (14.0-18.0); LYMPHOCYTES # (AUTO) 1.2 (1.0-3.2); MEAN CORPUSCULAR HEMOGLOBIN 22.6 pg (28-32); MEAN CORPUSCULAR HGB CONC 29.3 g/dL (31-35); MONOCYTES # (AUTO) 0.9 (0.2-0.8); MONOCYTES % 9.6 % (4.4-11.3); NEUTROPHILS # (AUTO) 7.4 (2.1-6.9); NEUTROPHILS % 76.4 % (38.7-80.0); PLATELET COUNT 178 x10e3/uL (140-360); RED BLOOD COUNT 4.74 x10e6/uL (4.3-5.7); RED CELL DISTRIBUTION WIDTH 16.9 % (11.7-14.4)
[2021-08-10] MEDS: Cefazolin 1 GM in SODIUM CHLORIDE 0.9% 50ML 50 ML IV SCH ×3 (06:09→21:14)
[2021-08-10 08:14] LABS: ANION GAP 10.4 mmol/L (8-16); CALCIUM 7.6 mg/dL (8.4-10.2); CREATININE, SERUM 1.16 mg/dL (0.72-1.25); POTASSIUM 4.4 mmol/L (3.5-5.1)
[2021-08-10] MEDS: MORPHINE SULFATE 1 MG/ML 30ML PCA IV PRN (08:35)
[2021-08-10] MEDS: DULOXETINE HCL 30 MG DELAYED RELEASE PO SCH (08:41)
[2021-08-10] MEDS: PREGABALIN 75 MG CAP PO SCH ×3 (08:41→21:14)
[2021-08-10] MEDS: METFORMIN HCL 500 MG TAB CR PO SCH (08:41)
[2021-08-10] MEDS: LISINOPRIL 2.5 MG TAB PO SCH (08:42)
[2021-08-10] MEDS ORDERED: THYROID NP PO SCH (09:00)
[2021-08-11] VITALS: BP 113/64
[2021-08-11] MEDS: SODIUM CHLORIDE 0.9% 1000ML 1,000 ML IV SCH (03:00)
[2021-08-11 04:00] VITALS: BP 118/63
[2021-08-11] MEDS: THYROID 60 MG TAB PO SCH (05:21)
[2021-08-11] MEDS: Cefazolin 1 GM in SODIUM CHLORIDE 0.9% 50ML 50 ML IV SCH (05:21)
[2021-08-11 05:48] LABS: BASOPHILS % 0.3 % (0.0-1.0); EOSINOPHILS # (AUTO) 0.2 (0.0-0.4); EOSINOPHILS % 2.1 % (0.0-6.0); HEMATOCRIT 36.3 % (38.2-49.6); HEMOGLOBIN 10.4 g/dL (14.0-18.0); LYMPHOCYTES % 11.5 % (18.0-39.1); MEAN CORPUSCULAR HEMOGLOBIN 22.6 pg (28-32); MEAN CORPUSCULAR HGB CONC 28.7 g/dL (31-35); MEAN CORPUSCULAR VOLUME 78.9 fL (81-99); MONOCYTES # (AUTO) 0.9 (0.2-0.8); MONOCYTES % 10.7 % (4.4-11.3); NEUTROPHILS # (AUTO) 6.5 (2.1-6.9); NEUTROPHILS % 74.9 % (38.7-80.0); PLATELET COUNT 170 x10e3/uL (140-360)
[2021-08-11 06:05] LABS: ANION GAP 11.2 mmol/L (8-16); CALCIUM 7.8 mg/dL (8.4-10.2); CREATININE, SERUM 1.12 mg/dL (0.72-1.25); POTASSIUM 4.2 mmol/L (3.5-5.1)
[2021-08-11 08:08] VITALS: BP 110/66
[2021-08-11 08:14] VITALS: BP 110/66
[2021-08-11] MEDS: PREGABALIN 75 MG CAP PO SCH (09:28)
[2021-08-11] MEDS: DULOXETINE HCL 30 MG DELAYED RELEASE PO SCH (09:28)
[2021-08-11] MEDS: METFORMIN HCL 500 MG TAB CR PO SCH (09:28)
[2021-08-11] MEDS: LISINOPRIL 2.5 MG TAB PO SCH (09:28)
[2021-08-11] MEDS ORDERED: LEVOFLOXACIN250 MG PO (10:25)
== END 2021-08-11 10:15 | disposition home or self-care (01) | DRG 709 ==
LOC: OR 11:50 → MED/SURG 17:01
PROC: 0TJB8ZZ Inspection of Bladder, Via Natural or Artificial Opening Endoscopic (ICD-10-PCS; 2021-08-08)
PROC: 0VUS0JZ Supplement Penis with Synthetic Substitute, Open Approach (ICD-10-PCS; principal; 2021-08-08 14:00)
DX: N40.1 Benign prostatic hyperplasia with lower urinary tract symptoms (principal); N13.8 Other obstructive and reflux uropathy; E11.22 Type 2 diabetes mellitus with diabetic chronic kidney disease; I12.9 Hypertensive chronic kidney disease with stage 1 through stage 4 chronic kidney disease, or unspecified chronic kidney disease; N18.9 Chronic kidney disease, unspecified; Z96.651 Presence of right artificial knee joint; E11.42 Type 2 diabetes mellitus with diabetic polyneuropathy; E66.9 Obesity, unspecified; D64.9 Anemia, unspecified; N52.9 Male erectile dysfunction, unspecified; Z68.37 Body mass index [BMI] 37.0-37.9, adult; Z20.822 Contact with and (suspected) exposure to COVID-19; Z86.718 Personal history of other venous thrombosis and embolism; Z79.84 Long term (current) use of oral hypoglycemic drugs
CPT/HCPCS: 36415; 80048; 82948; 83735; 85025; 93005; C1776; C1813; J0690; J1580; J2270; J2543; J3370; J7030; J7040; U0002

== ENCOUNTER 2021-08-30 12:26 | Outpatient (RCR) | payer MEDICARE ==
[~2021-08-30 12:26] MED LIST changes: +LEVOFLOXACIN250 MG PO
== END 2021-09-04 ==
LOC: WCC 12:26
PROVIDERS: ATTEND Podiatrist Foot & Ankle Surgery
DX: E11.621 Type 2 diabetes mellitus with foot ulcer (principal); Z45.2 Encounter for adjustment and management of vascular access device; L97.521 Non-pressure chronic ulcer of other part of left foot limited to breakdown of skin; I70.203 Unspecified atherosclerosis of native arteries of extremities, bilateral legs; L20.9 Atopic dermatitis, unspecified; R23.8 Other skin changes; G90.09 Other idiopathic peripheral autonomic neuropathy

== ENCOUNTER 2021-09-20 08:11 | Outpatient (RCR) | payer MEDICARE | END 2021-10-04 | LOC: WCC 08:11 | PROVIDERS: ATTEND Podiatrist Foot & Ankle Surgery | DX: E11.621 Type 2 diabetes mellitus with foot ulcer (principal); L97.521 Non-pressure chronic ulcer of other part of left foot limited to breakdown of skin; I70.203 Unspecified atherosclerosis of native arteries of extremities, bilateral legs; L20.9 Atopic dermatitis, unspecified; R23.8 Other skin changes; G90.09 Other idiopathic peripheral autonomic neuropathy; Z45.2 Encounter for adjustment and management of vascular access device ==

== ENCOUNTER 2022-03-28 07:58 | Outpatient (RCR) | payer MEDICARE ==
[~2022-03-28 07:58] MED LIST changes: +LIDOCAINE VISC 2% SOLN 15 ML UDC ONE; +MUPIROCIN 2% OINT 22 GM TUBE ONE
[2022-03-28] MEDS ORDERED: MINERAL OIL/PETROLAT/GLYCERI 6OZ BTL ONE (16:28)
[2022-03-28] MEDS ORDERED: LIDOCAINE VISC 2% SOLN 15 ML UDC ONE (16:28)
== END 2022-04-04 ==
LOC: WCC 07:58
PROVIDERS: ATTEND Podiatrist Foot & Ankle Surgery
DX: E11.621 Type 2 diabetes mellitus with foot ulcer (principal); L97.528 Non-pressure chronic ulcer of other part of left foot with other specified severity; I70.203 Unspecified atherosclerosis of native arteries of extremities, bilateral legs; G90.09 Other idiopathic peripheral autonomic neuropathy; L20.9 Atopic dermatitis, unspecified; R23.8 Other skin changes; Z45.2 Encounter for adjustment and management of vascular access device

== ENCOUNTER 2022-05-02 07:52 | Outpatient (RCR) | payer MEDICARE ==
[~2022-05-02 07:52] MED LIST changes: -LIDOCAINE VISC 2% SOLN 15 ML UDC ONE; +MINERAL OIL/PETROLAT/GLYCERI 6OZ BTL ONE; -MUPIROCIN 2% OINT 22 GM TUBE ONE
== END 2022-05-04 ==
LOC: WCC 07:52
PROVIDERS: ATTEND Podiatrist Foot & Ankle Surgery
DX: E11.621 Type 2 diabetes mellitus with foot ulcer (principal); L97.528 Non-pressure chronic ulcer of other part of left foot with other specified severity; R23.8 Other skin changes; L20.9 Atopic dermatitis, unspecified; G90.09 Other idiopathic peripheral autonomic neuropathy; I70.203 Unspecified atherosclerosis of native arteries of extremities, bilateral legs; Z45.2 Encounter for adjustment and management of vascular access device